=== PATIENT | male | born 1990 | race Caucasian/White ===

== ENCOUNTER 2020-02-05 16:51 | Emergency (ER) | payer MEDICAID, SELFPAY ==
[2020-02-05 16:53] VITALS: BP 129/103; PULSE 112; RESP 18; TEMP 35.8; O2SAT 98; BMI 18.8
--- NOTE | 2020-02-05 18:15 | ED.RN ---
son gave this RN mothers phone number who this RN called to try to get ride home for pt. mother states she does not drive and will make a few calls to try to get pt ride and will call back into the ER when she gets more information.
--- NOTE | 2020-02-05 18:26 | ED.DCSUM_ITS ---
- ER Visit Summary Date of Service: 02/05/20 Chief Complaint: Substance abuse History of Present Illness: The patient is a 29 M has no primary care physician. He reports that last night he was being chased by police and he put Suboxone in his rectum to take to intermediate. States that he did end up getting arrested. He reports he had a bowel movement earlier today and that he forgot about the Suboxone, but still feels messed up. Patient reports that he is smoked marijuana today. He denies any other drug use today. He denies any suicidal ideation. Physical Examination: Vitals: Stable. Afebrile. General: Well-nourished and well-developed. Patient is clearly not sober. His pupils are small, but he is alert. He is fidgety and is picking at himself. He is tachycardic. Head: Normocephalic atraumatic. Neck: Supple, no lymphadenopathy. No JVD. Nontender. Cardiovascular: Regular rate and rhythm. No murmurs. Respiratory: No respiratory distress. Clear to auscultation bilaterally. Abdominal: Soft, nontender, nondistended, normal bowel sounds. No guarding, rebound, or peritoneal signs. Back: Nontender. Extremities: Nontender, no edema. Skin: Normal color, no rash. Neurologic: Alert and oriented ?3. Cranial nerves II through XII are intact. Normal strength and sensation. Psych: Normal affect. Emergency Department Course and Treatment: Patient refused to provide a urine sample. He does not want help with his drug use. He denies any suicidal ideation. He refused a rectal exam for the Suboxone. Patient is stating that he wants to leave. He is clinically intoxicated. He is repeatedly asking the same questions. He does not remember me on repeated visits to his room. He does not have the capacity to make the decision to leave right now. Treatment Plan: We have spoken with the patient's mother multiple times on the phone. She is trying to make arrangements for someone to come and pick him up from the hospital. She states that she is having difficult time doing this as they live 35 minutes away. The patient will be observed until either clinically sober or he has a ride home. Disposition: Pending Impression: 1. Polysubstance abuse. This note was generated with [employer] software. It may contain incorrect words, spelling, and punctuation that were not noted in review of the chart prior to signing Capacity - Capacity Assessment Tool Can the patient make a choice & communicate that choice?: Yes Can the patient understand benefits, risks and alternatives?: No Can the patient make a logical, rational choice?: Comment - Patient clearly not sober. Needs to have someone pick him up. Is the choice the patient makes consistent w/ their values?: Unable to Determine Is there an impending, emergent risk to the patient?: Yes Does the patient have an Advance Directive?: No Is there a Surrogate Available?: Comment - Spoke with patients mother. She is making arrangements to have him picked up. i.e. HCPOA: No i.e. close relative (spouse, child, parent, sibling)?: Yes ED Disposition - Plan for ED Patient: Instructions: Signs of Addiction: When Use Becomes Abuse Referrals: Jose Dhillon MD [Primary Care Provider] - As Needed
[2020-02-05 18:57] VITALS: RESP 18
--- NOTE | 2020-02-05 20:01 | ED.RN ---
mother called again for ride. she has been trying to contact friends/family without any luck. mother will call back with updates.
[2020-02-05] MEDS: Ondansetron ODT 4 MG Tablet PO (22:10)
[2020-02-05 23:24] VITALS: BP 118/73; PULSE 96; RESP 18; O2SAT 94
--- NOTE | 2020-02-05 23:25 | ED.RN ---
pts mother contacted again regarding ride home. mother has tried multiple contacts for ride and no luck. unable to pay $75 taxi fee. mother states she is still trying to find ride to our ER in order to transport pt home and will keep us updated.
[2020-02-06 02:32] VITALS: PULSE 109; RESP 19; O2SAT 98
[2020-02-06 04:15] VITALS: RESP 17
[2020-02-06 06:20] VITALS: BP 123/78; PULSE 98; RESP 16; O2SAT 96
[2020-02-06 08:23] VITALS: BP 140/85; PULSE 77; RESP 18; O2SAT 96
--- NOTE | 2020-02-06 08:23 | NURSING ---
Pt awakened, assessed by Dr. Cline, pt woken up from sleep, jittery and won't sit still, unable to state where he is or events of last night; given a breakfast sandwich at this time; when asked if there was anyone to call to pick him up he says at 8:30 in the morning? No... we don't do that where I'm from... will monitor.
== END 2020-02-06 09:13 | disposition home or self-care (01) ==
LOC: ED 17:54
PROVIDERS: Emergency Provider Emergency Medicine; PCP Internal Medicine
DX: F19.10 Other psychoactive substance abuse, uncomplicated (principal); R31.9 Hematuria, unspecified; R11.2 Nausea with vomiting, unspecified; F17.210 Nicotine dependence, cigarettes, uncomplicated; F98.8 Other specified behavioral and emotional disorders with onset usually occurring in childhood and adolescence; Z86.19 Personal history of other infectious and parasitic diseases; F12.90 Cannabis use, unspecified, uncomplicated
CPT/HCPCS: 99283